=== PATIENT | female | born 1995 | race Caucasian/White ===

== ENCOUNTER 2018-02-18 14:29 | Observation (INO) | payer BC ==
[2018-02-18] MEDS ORDERED: SODIUM CHLORIDE 0.9% 1,000 ML IV STA (14:48)
--- NOTE | 2018-02-18 15:12 | ED ---
Abdominal Pain HPI - General Source: patient Mode of arrival: ambulatory Limitations: no limitations <Shanice Kim - Last Filed: 02/18/18 16:57> - General Source: RN notes reviewed, old records reviewed - History of Present Illness Complaint: abdominal pain Location: diffuse, periumbilical Radiation: none Migration to: no migration Severity: mild Severity scale (1-10): 3 Quality: cramping Consistency: constant Improves With: nothing Worsens With: nothing Associated Symptoms: denies other symptoms <Saleem Chappell - Last Filed: 02/18/18 18:54> - General Chief Complaint: Abdominal Pain Stated Complaint: abdominal pain-sent by [employer] Time Seen by Provider: 02/18/18 14:42 - History of Present Illness Initial Comments: 22-year-old female patient presents to the emergency department today for evaluation of right lower quadrant abdominal pain. Patient states she was seen and evaluated at [facility], was diagnosed with urinary tract infection but they wanted her to present to the ER for further evaluation. Patient states that the pain started last evening. Patient states are times and that the pain is dull however there are also times in the pain is sharp and stabbing and severe. Patient denies any nausea, vomiting, constipation, or diarrhea with this. Denies any hematuria, dysuria, urinary frequency, urinary urgency. States the pain does not radiate through to her back. Denies any history of abdominal surgeries. Denies any abnormal vaginal bleeding or discharge. Denies concern for STIs. Patient denies any recent rash, shortness breath, chest pain, numbness, tingling, dizziness, weakness, hematuria, dysuria, urinary urgency, urinary frequency, headache, visual changes, or any other complaints. (Shanice Kim) - Related Data Home Medications Medication Instructions Recorded Confirmed Citalopram Hydrobromide [CeleXA] 40 mg PO DAILY 02/18/18 02/18/18 Ibuprofen [Motrin Ib] 400 mg PO Q6H PRN 02/18/18 02/18/18 Iron 18 mg PO DAILY 02/18/18 02/18/18 Lessina-28 ( Control) 1 tab PO DAILY 02/18/18 02/18/18 Potassium 99 mg PO DAILY 02/18/18 02/18/18 Allergies Allergy/AdvReac Type Severity Reaction Status Date / Time latex Allergy Rash/Hives Verified 02/18/18 17:48 Review of Systems ROS Other: All systems not noted in ROS Statement are negative. <Shanice Kim - Last Filed: 02/18/18 16:57> ROS Other: All systems not noted in ROS Statement are negative. <Saleem Chappell - Last Filed: 02/18/18 18:54> ROS Statement: Those systems with pertinent positive or pertinent negative responses have been documented in the HPI. Past Medical History Past Medical History: No Reported History History of Any Multi-Drug Resistant Organisms: None Reported Past Surgical History: No Surgical Hx Reported Past Psychological History: ADD/ADHD, Anxiety Smoking Status: Current some day smoker Past Alcohol Use History: Occasional Past Drug Use History: None Reported <Shanice Kim - Last Filed: 02/18/18 16:57> General Exam Limitations: no limitations General appearance: alert, in no apparent distress, other (This is a well- developed, well-nourished adult female patient in no acute distress. Vital signs upon presentation are temperature 97.6F, pulse 78, respirations 20, blood pressure 118/74, pulse ox 100% on room air.) Eye exam: Present: normal appearance, PERRL, EOMI. Absent: scleral icterus, conjunctival injection, periorbital swelling ENT exam: Present: normal exam, normal oropharynx, mucous membranes moist Respiratory exam: Present: normal lung sounds bilaterally. Absent: respiratory distress, wheezes, rales, rhonchi, stridor Cardiovascular Exam: Present: regular rate, normal rhythm, normal heart sounds. Absent: systolic murmur, diastolic murmur, rubs, gallop, clicks GI/Abdominal exam: Present: soft, tenderness (Right lower quadrant tenderness), normal bowel sounds. Absent: distended, guarding, rebound, rigid Neurological exam: Present: alert, oriented X3, CN II-XII intact Psychiatric exam: Present: normal affect, normal mood Skin exam: Present: warm, dry, intact, normal color. Absent: rash <Shanice Kim - Last Filed: 02/18/18 16:57> General appearance: alert, in no apparent distress Head exam: Present: atraumatic, normocephalic, normal inspection Eye exam: Present: normal appearance, PERRL, EOMI. Absent: scleral icterus, conjunctival injection, periorbital swelling ENT exam: Present: normal exam, mucous membranes moist Neck exam: Present: normal inspection. Absent: tenderness, meningismus, lymphadenopathy Respiratory exam: Present: normal lung sounds bilaterally. Absent: respiratory distress, wheezes, rales, rhonchi, stridor Cardiovascular Exam: Present: regular rate, normal rhythm, normal heart sounds. Absent: systolic murmur, diastolic murmur, rubs, gallop, clicks GI/Abdominal exam: Present: soft, normal bowel sounds. Absent: distended, tenderness, guarding, rebound, rigid Extremities exam: Present: normal inspection, full ROM, normal capillary refill. Absent: tenderness, pedal edema, joint swelling, calf tenderness Back exam: Present: normal inspection Neurological exam: Present: alert, oriented X3, CN II-XII intact Psychiatric exam: Present: normal affect, normal mood Skin exam: Present: warm, dry, intact, normal color. Absent: rash <Saleem Chappell - Last Filed: 02/18/18 18:54> Course <Shanice Kim - Last Filed: 02/18/18 16:57> <Saleem Chappell - Last Filed: 02/18/18 18:54> Vital Signs 02/18/18 02/18/18 14:32 17:33 Temperature 97.6 F 97.7 F Pulse Rate 78 91 Respiratory 20 16 Rate Blood Pressure 118/74 111/59 O2 Sat by Pulse 100 100 Oximetry - Reevaluation(s) Reevaluation #1: 02/18/18 18:[address] Hudson he is aware of patient's condition and findings, patient will reveal. Patient, he will also admit patient for surgical intervention ( Saleem Chappell) Medical Decision Making - Lab Data Result diagrams: 02/18/18 15:05 02/18/18 15:05 <Shanice Kim - Last Filed: 02/18/18 16:57> - Lab Data Result diagrams: 02/18/18 15:05 02/18/18 15:05 <Saleem Chappell - Last Filed: 02/18/18 18:54> - Medical Decision Making 22-year-old male patient presents the emergency department today for evaluation of right lower quadrant abdominal pain. Physical examination did reveal some mild tenderness of the right lower quadrant. Labs reviewed and did reveal elevated white blood cell count at 12.6. Urinalysis did show14 white blood cells, many bacteria, 9 squamous epithelial cells. I did discuss findings and results with the patient. There is some concern for appendicitis we will perform CT abdomen and pelvis with contrast. My attending Dr. Chappell, will take over care and follow patient until disposition. (Shanice Kim) 22 female the ER for positive abdominal pain positive CT for appendicitis. Patient be taken for surgery tonight. (Saleem Chappell) - Lab Data Lab Results 02/18/18 02/18/18 02/18/18 Range/Units 15:05 15:05 15:05 WBC 12.1 H (4.0-11.0) k/uL RBC 4.53 (3.80-5.40) m/uL Hgb 12.9 (11.4-16.0) gm/dL Hct 38.2 (34.0-46.0) % MCV 84.3 (80.0-100.0) fL MCH 28.6 (25.0-35.0) pg MCHC 33.9 (31.0-37.0) g/dL RDW 12.5 (11.5-15.5) % Plt Count 246 (150-450) k/uL Neutrophils % 69 % Lymphocytes % 25 % Monocytes % 3 % Eosinophils % 2 % Basophils % 0 % Neutrophils # 8.4 H (1.3-7.7) k/uL Lymphocytes # 3.0 (1.0-4.8) k/uL Monocytes # 0.4 (0-1.0) k/uL Eosinophils # 0.2 (0-0.7) k/uL Basophils # 0.0 (0-0.2) k/uL Sodium 142 (137-145) mmol/L Potassium 3.8 (3.5-5.1) mmol/L Chloride 105 (98-107) mmol/L Carbon Dioxide 27 (22-30) mmol/L Anion Gap 10 mmol/L BUN 18 H (7-17) mg/dL Creatinine 0.87 (0.52-1.04) mg/dL Est GFR (CKD-EPI)AfAm >90 (>60 ml/min/1.73 sqM) Est GFR (CKD-EPI)NonAf >90 (>60 ml/min/1.73 sqM) Glucose 84 (74-99) mg/dL Calcium 9.6 (8.4-10.2) mg/dL Total Bilirubin 0.2 (0.2-1.3) mg/dL AST 22 (14-36) U/L ALT 36 (9-52) U/L Alkaline Phosphatase 77 (38-126) U/L Total Protein 7.4 (6.3-8.2) g/dL Albumin 4.3 (3.5-5.0) g/dL Amylase 55 (30-110) U/L Lipase 91 (23-300) U/L Urine Color Yellow Urine Appearance Cloudy H (Clear) Urine pH 6.0 (5.0-8.0) Ur Specific [place] 1.029 (1.001-1.035) Urine Protein 1+ H (Negative) Urine Glucose (UA) Negative (Negative) Urine Ketones Trace H (Negative) Urine Blood Negative (Negative) Urine Nitrite Negative (Negative) Urine Bilirubin Negative (Negative) Urine Urobilinogen <2.0 (<2.0) mg/dL Ur Leukocyte Esterase Moderate H (Negative) Urine RBC 11 H (0-5) /hpf Urine WBC 14 H (0-5) /hpf Ur Squamous Epith Cells 9 H (0-4) /hpf Urine Bacteria Many H (None) /hpf Urine Mucus Many H (None) /hpf Urine HCG, Qual (Not Detectd) 02/18/18 Range/Units 15:05 WBC (4.0-11.0) k/uL RBC (3.80-5.40) m/uL Hgb (11.4-16.0) gm/dL Hct (34.0-46.0) % MCV (80.0-100.0) fL MCH (25.0-35.0) pg MCHC (31.0-37.0) g/dL RDW (11.5-15.5) % Plt Count (150-450) k/uL Neutrophils % % Lymphocytes % % Monocytes % % Eosinophils % % Basophils % % Neutrophils # (1.3-7.7) k/uL Lymphocytes # (1.0-4.8) k/uL Monocytes # (0-1.0) k/uL Eosinophils # (0-0.7) k/uL Basophils # (0-0.2) k/uL Sodium (137-145) mmol/L Potassium (3.5-5.1) mmol/L Chloride (98-107) mmol/L Carbon Dioxide (22-30) mmol/L Anion Gap mmol/L BUN (7-17) mg/dL Creatinine (0.52-1.04) mg/dL Est GFR (CKD-EPI)AfAm (>60 ml/min/1.73 sqM) Est GFR (CKD-EPI)NonAf (>60 ml/min/1.73 sqM) Glucose (74-99) mg/dL Calcium (8.4-10.2) mg/dL Total Bilirubin (0.2-1.3) mg/dL AST (14-36) U/L ALT (9-52) U/L Alkaline Phosphatase (38-126) U/L Total Protein (6.3-8.2) g/dL Albumin (3.5-5.0) g/dL Amylase (30-110) U/L Lipase (23-300) U/L Urine Color Urine Appearance (Clear) Urine pH (5.0-8.0) Ur Specific [place] (1.001-1.035) Urine Protein (Negative) Urine Glucose (UA) (Negative) Urine Ketones (Negative) Urine Blood (Negative) Urine Nitrite (Negative) Urine Bilirubin (Negative) Urine Urobilinogen (<2.0) mg/dL Ur Leukocyte Esterase (Negative) Urine RBC (0-5) /hpf Urine WBC (0-5) /hpf Ur Squamous Epith Cells (0-4) /hpf Urine Bacteria (None) /hpf Urine Mucus (None) /hpf Urine HCG, Qual Not Detected (Not Detectd) Disposition <Shanice Kim - Last Filed: 02/18/18 16:57> Is patient prescribed a controlled substance at d/c from ED?: No <Saleem Chappell - Last Filed: 02/18/18 18:54> Clinical Impression: Abdominal pain, Acute appendicitis Disposition: ADMITTED IP TO THIS HOSP Condition: Fair Referrals: Avni Alvarez DO [Primary Care Provider] - 1-2 days
[2018-02-18 15:29] LABS: Appearance,Urine Cloudy (Clear); Bacteria,Urine Many /hpf; Bilirubin,Urine Negative (Negative); Blood,Urine Negative (Negative); Color,Urine Yellow; Glucose,Urine (UA) Negative (Negative); Ketones,Urine Trace (Negative); Leukocyte Esterase,Urine Moderate (Negative); Mucus,Urine Many /hpf; Nitrite,Urine Negative (Negative); Protein,Urine 1+ (Negative); RBC,Urine 11 /hpf (0-5); Specific Gravity,Urine 1.029 (1.001-1.035); Squamous Epithelial Cell,Urine 9 /hpf (0-4); Urobilinogen,Urine <2.0 mg/dL (<2.0); WBC,Urine 14 /hpf (0-5)
[2018-02-18 15:33] LABS: Basophils % (A) 0 %; Eosinophils # (A) 0.2 k/uL (0-0.7); Eosinophils % (A) 2 %; HCT 38.2 % (34.0-46.0); HGB 12.9 gm/dL (11.4-16.0); Lymphocytes % (A) 25 %; MCH 28.6 pg (25.0-35.0); MCHC 33.9 g/dL (31.0-37.0); MCV 84.3 fL (80.0-100.0); Mean Platelet Volume 6.4; Monocytes # (A) 0.4 k/uL (0-1.0); Monocytes % (A) 3 %; Neutrophils # (A) 8.4 k/uL (1.3-7.7); Neutrophils % (A) 69 %; Platelet Count 246 k/uL (150-450); RBC 4.53 m/uL (3.80-5.40); RDW 12.5 % (11.5-15.5); WBC 12.1 k/uL (4.0-11.0)
[2018-02-18 15:34] LABS: ALT 36 U/L (9-52); AST 22 U/L (14-36); Albumin 4.3 g/dL (3.5-5.0); Alkaline Phosphatase 77 U/L (38-126); Amylase 55 U/L (30-110); Anion Gap 10 mmol/L; Blood Urea Nitrogen 18 mg/dL (7-17); Calcium 9.6 mg/dL (8.4-10.2); Carbon Dioxide 27 mmol/L (22-30); Chloride 105 mmol/L (98-107); Glucose 84 mg/dL (74-99); Lipase 91 U/L (23-300); Potassium 3.8 mmol/L (3.5-5.1); Sodium 142 mmol/L (137-145); Total Bilirubin 0.2 mg/dL (0.2-1.3); Total Protein 7.4 g/dL (6.3-8.2)
--- NOTE | 2018-02-18 15:44 | XR ---
EXAMINATION TYPE: XR KUB DATE OF EXAM: 02/18/2018 CLINICAL DATA: 22-year-old male with abdominal pain on the right, [facility] COMPARISON: None FINDINGS: Lung bases are clear. No evidence for free intraperitoneal air. No dilated small bowel or air-fluid levels. Small amount of scattered colonic air. Mild stool in the right-sided the abdomen. No suspicious calcifications seen. IMPRESSION: Only mild stool on the right. No evidence of bowel obstruction or free intraperitoneal air.
--- NOTE | 2018-02-18 17:23 | CT ---
EXAMINATION TYPE: CT abdomen pelvis w con DATE OF EXAM: 02/18/2018 COMPARISON: None HISTORY: LT groin pain radiating to abdomen CT DLP: 1226.9 mGycm CONTRAST: CT scan of the abdomen and pelvis is performed without Oral Contrast and with IV Contrast, patient in jected with 100 mL of Isovue 300. FINDINGS: LUNG BASES-: No visible nodule. No infiltrate. LIVER/GB: No calcified gallstones. No space occupying hepatic lesion. Biliary tree is of normal ca liber. PANCREAS: No inflammation. No distinct mass. SPLEEN: No splenic enlargement. No lesion seen. ADRENALS: No nodule. No thickening. KIDNEYS/BLADDER: No hydronephrosis. No nephrolithiasis. No distinct renal mass. Urinary bladder g rossly unremarkable. BOWEL: There is thickening at the base of the appendix measuring 9.6 mm with periappendiceal inflamma tory change. Mild uncomplicated acute appendicitis not excluded. Strict clinical correlation advised. The remainder of the appendix has a normal appearance. There is a small amount of free fluid within the pelvis and cul-de-sac. Mild small bowel ileus noted. Large bowel is of normal caliber. No evidenc e for abscess or free air. GENITAL ORGANS: No gross abnormality. LYMPH NODES: No greater than 1cm abdominal or pelvic lymph nodes are appreciated. AORTA: No significant abnormality. OSSEOUS STRUCTURES: No significant abnormality is seen. OTHER: No significant additional abnormality is seen. IMPRESSION: 1. There is thickening at the base of the appendix measuring 9.6 mm with periappendiceal inflammatory change. Mild uncomplicated acute appendicitis not excluded. Strict clinical correlation advised
[2018-02-18] MEDS ORDERED: HEPARIN SODIUM,PORCINE 5,000 UNIT/ML 1 ML VIAL SQ STA (18:43)
[2018-02-18] MEDS ORDERED: PIPERACILLIN-TAZOBACTAM 3.375 GM in SODIUM CHLORIDE 0.9% 100 ML IVPB STA (18:55)
[2018-02-18] MEDS ORDERED: MORPHINE SULFATE 4 MG/ML SYRINGE IVP PRN (19:08)
[2018-02-18] MEDS ORDERED: MORPHINE SULFATE 4 MG/ML SYRINGE IVP STA (19:08)
[2018-02-18] MEDS ORDERED: BUPIVACAIN-EPI 0.25%-1:200,000 30 ML VIAL SQ ONE ×2 (20:15)
--- NOTE | 2018-02-18 20:27 | P.GSHP ---
History of Present Illness H&P Date: 02/18/18 Chief Complaint: Acute appendicitis 22-year-old female presents to the ER from urgent care with pain. Pain periumbilical moved down to the right lower quadrant yesterday afternoon. The pain began yesterday. No history of similar events. Some nausea but no vomiting. Currently hungry. No change in bowel habits. White blood cell count slightly elevated. CAT scan shows inflammatory changes around the base of the appendix which was slightly thickened. No menstrual irregularities. HCG negative. - Review of Systems Comment: The patient denies any acute changes in vision or hearing, no dysphagia or odynophagia, no chest pain or shortness of breath, no dysuria or hematuria, no headache, no runny nose, no rectal bleeding or melena, no unexplained weight loss Past Medical History Past Medical History: No Reported History History of Any Multi-Drug Resistant Organisms: None Reported Past Surgical History: No Surgical Hx Reported Past Psychological History: ADD/ADHD, Anxiety Smoking Status: Current some day smoker Past Alcohol Use History: Occasional Past Drug Use History: None Reported Medications and Allergies Home Medications Medication Instructions Recorded Confirmed Type Citalopram Hydrobromide [CeleXA] 40 mg PO DAILY 02/18/18 02/18/18 History Ibuprofen [Motrin Ib] 400 mg PO Q6H PRN 02/18/18 02/18/18 History Iron 18 mg PO DAILY 02/18/18 02/18/18 History Lessina-28 ( Control) 1 tab PO DAILY 02/18/18 02/18/18 History Potassium 99 mg PO DAILY 02/18/18 02/18/18 History Allergies Allergy/AdvReac Type Severity Reaction Status Date / Time latex Allergy Rash/Hives Verified 02/18/18 17:48 Surgical - Exam Vital Signs Temp Pulse Resp BP Pulse Ox 97.6 F 78 20 118/74 100 02/18/18 14:32 02/18/18 14:32 02/18/18 14:32 02/18/18 14:32 02/18/18 14:32 Physical exam: General: Well-developed, well-nourished HEENT: Normocephalic, sclerae nonicteric Abdomen: Moderate right lower quadrant tenderness, nondistended Extremities: No edema Neuro: Alert and oriented Results - Labs 02/18/18 15:05 02/18/18 15:05 Abnormal Lab Results - Last 24 Hours (Table) 02/18/18 02/18/18 02/18/18 Range/Units 15:05 15:05 15:05 WBC 12.1 H (4.0-11.0) k/uL Neutrophils # 8.4 H (1.3-7.7) k/uL BUN 18 H (7-17) mg/dL Urine Appearance Cloudy H (Clear) Urine Protein 1+ H (Negative) Urine Ketones Trace H (Negative) Ur Leukocyte Esterase Moderate H (Negative) Urine RBC 11 H (0-5) /hpf Urine WBC 14 H (0-5) /hpf Ur Squamous Epith Cells 9 H (0-4) /hpf Urine Bacteria Many H (None) /hpf Urine Mucus Many H (None) /hpf Diabetes panel 02/18/18 Range/Units 15:05 Sodium 142 (137-145) mmol/L Potassium 3.8 (3.5-5.1) mmol/L Chloride 105 (98-107) mmol/L Carbon Dioxide 27 (22-30) mmol/L BUN 18 H (7-17) mg/dL Creatinine 0.87 (0.52-1.04) mg/dL Glucose 84 (74-99) mg/dL Calcium 9.6 (8.4-10.2) mg/dL AST 22 (14-36) U/L ALT 36 (9-52) U/L Alkaline Phosphatase 77 (38-126) U/L Total Protein 7.4 (6.3-8.2) g/dL Albumin 4.3 (3.5-5.0) g/dL Calcium panel 02/18/18 Range/Units 15:05 Calcium 9.6 (8.4-10.2) mg/dL Albumin 4.3 (3.5-5.0) g/dL Pituitary panel 02/18/18 Range/Units 15:05 Sodium 142 (137-145) mmol/L Potassium 3.8 (3.5-5.1) mmol/L Chloride 105 (98-107) mmol/L Carbon Dioxide 27 (22-30) mmol/L BUN 18 H (7-17) mg/dL Creatinine 0.87 (0.52-1.04) mg/dL Glucose 84 (74-99) mg/dL Calcium 9.6 (8.4-10.2) mg/dL Adrenal panel 02/18/18 Range/Units 15:05 Sodium 142 (137-145) mmol/L Potassium 3.8 (3.5-5.1) mmol/L Chloride 105 (98-107) mmol/L Carbon Dioxide 27 (22-30) mmol/L BUN 18 H (7-17) mg/dL Creatinine 0.87 (0.52-1.04) mg/dL Glucose 84 (74-99) mg/dL Calcium 9.6 (8.4-10.2) mg/dL Total Bilirubin 0.2 (0.2-1.3) mg/dL AST 22 (14-36) U/L ALT 36 (9-52) U/L Alkaline Phosphatase 77 (38-126) U/L Total Protein 7.4 (6.3-8.2) g/dL Albumin 4.3 (3.5-5.0) g/dL Assessment and Plan (1) Acute appendicitis Narrative/Plan: Clinical scenario discussed with the patient and her parents. We'll proceed with laparoscopic appendectomy at this time. Risks of bleeding, infection, conversion to an open procedure, bladder and bowel injury, abscess, hernia, postoperative pain, potential for finding other etiologies for her pain were reviewed. They understand and wish to proceed. Current Visit: Yes Status: Acute Code(s): K35.80 - UNSPECIFIED ACUTE APPENDICITIS SNOMED Code(s): 41299719
[2018-02-18] MEDS ORDERED: HEPARIN SODIUM,PORCINE 5,000 UNIT/ML 1 ML VIAL ONE (20:30)
[2018-02-18] MEDS ORDERED: ROCURONIUM BROMIDE 10 MG/ML 10 ML VIAL IV ONE (20:30)
[2018-02-18] MEDS ORDERED: SUCCINYLCHOLINE CHLORIDE 100 MG/5 ML SYR IV ONE (20:30)
[2018-02-18] MEDS ORDERED: ONDANSETRON 4 MG/2 ML VIAL ONE (20:30)
[2018-02-18] MEDS ORDERED: HYDROmorphone (PF) 1 MG/ML ONE (20:30)
[2018-02-18] MEDS ORDERED: MIDAZOLAM 2 MG/2 ML VIAL ONE (20:30)
[2018-02-18] MEDS ORDERED: fentaNYL (PF) 50 MCG/ML 2 ML AMP ONE (20:30)
[2018-02-18] MEDS ORDERED: PROPOFOL 10 MG/ML 20 ML VIAL IV ONE (20:30)
[2018-02-18] MEDS ORDERED: LIDOCAINE 1% INJ 10MG/ML (20 ML MDV) ONE (20:30)
[2018-02-18] MEDS ORDERED: KETOROLAC 30 MG/ML 1 ML VIAL ONE (20:30)
[2018-02-18] MEDS ORDERED: IV FLUID CONTINUATION 900 ML IV ONE (20:54)
[2018-02-18] MEDS ORDERED: HYDROmorphone 0.5 MG/0.5 ML SYRINGE IVP PRN (21:26)
[2018-02-18] MEDS ORDERED: NALOXONE 0.4 MG/ML 1 ML VIAL IV PRN (21:26)
[2018-02-18] MEDS ORDERED: HYDROcodone/APAP 5-325MG 1 EACH TAB PO PRN (21:26)
[2018-02-18] MEDS ORDERED: ONDANSETRON 4 MG/2 ML VIAL IVP PRN (21:26)
--- NOTE | 2018-02-18 21:28 | P.OP ---
Date of Procedure: 02/18/18 Procedure(s) Performed: PREOPERATIVE DIAGNOSIS: Acute appendicitis POSTOPERATIVE DIAGNOSIS: Same PROCEDURE: Laparoscopic appendectomy SURGEON: Tristan EBL: Total ANESTHESIA: General COMPLICATIONS: None OPERATIVE PROCEDURE: The patient was brought and placed on the operating table in the supine position. The patient was placed under general anesthesia. The abdomen was prepped and draped in the usual sterile fashion. A small vertical infraumbilical incision was made. The fascia was retracted anteriorly with Bharti forceps. The Veress needle was advanced into the peritoneal cavity. The saline drop test was normal. Insufflation took place to 15 mmHg. A 5 mm trocar was then placed. An additional 5 mm suprapubic trocar was placed under direct visualization as well as a 12 mm left lower quadrant trocar under direct visualization. The appendix was inspected. It was acutely inflamed. The mesoappendix was dissected. The base of the appendix was divided using a linear 45 mm intestinal stapler. The mesentery itself was divided using both the hays load stapler and the 12 mm clipper. The area was then irrigated. No further purulence or bleeding was seen. The appendix was brought out of the peritoneal cavity through the left lower quadrant trocar site using an Endo Catch bag. The fascia at the 12 mm site was closed using a Reid-Misael 0 Vicryl stitch. The skin at all 3 sites was closed using 4-0 Monocryl sutures. Skin glue and sterile dressings then applied. DISPOSITION: Stable to recovery room
[2018-02-18] MEDS ORDERED: MEPERIDINE 50 MG/ML SYRINGE IVP ONE (21:31)
[2018-02-19] MEDS: KETOROLAC 30 MG/ML 1 ML VIAL IVP SCH ×5 (00:16→21:40)
[2018-02-19] MEDS: HEPARIN SODIUM,PORCINE 5,000 UNIT/ML 1 ML VIAL SQ SCH ×3 (00:17→17:10)
[2018-02-19] MEDS: PIPERACILLIN-TAZOBACTAM 3.375 GM in SODIUM CHLORIDE 0.9% 100 ML IVPB SCH ×3 (01:22→18:13)
--- NOTE | 2018-02-19 13:34 | P.PN ---
Subjective Progress Note Date: 02/19/18 Principal diagnosis: Acute appendicitis Patient complaining of some chest and gassy pain today. Right lower quadrant pain improved. She is afebrile. She is ambulate in. She was having urinary retention issues however. Objective - Vital Signs Vital signs: Vital Signs Temp 97.6 F 02/19/18 00:09 Pulse 76 02/19/18 08:56 Resp 16 02/19/18 08:56 BP 98/64 02/19/18 08:56 Pulse Ox 97 02/19/18 08:56 Intake & Output 02/18/18 02/19/18 02/19/18 18:59 06:59 18:59 Intake Total 1910 Output Total 305 Balance 1605 Weight 89.811 kg Intake: IV 200 Intake, IV Titration 460 Amount Piperacillin-Tazobactam 3 100 .375 gm In Sodium Chloride 0.9% 100 ml @ 25 mls/hr IVPB ONCE STA Rx# :[id number] Piperacillin-Tazobactam 3 200 .375 gm In Sodium Chloride 0.9% 100 ml @ 25 mls/hr IVPB Q8HR ELLIOT Rx# :[id number] Sodium Chloride 0.9% 1, 160 000 ml @ 20 mls/hr IV . Q24H ELLIOT Rx#:[id number] Oral 1250 Output: Urine 300 Straight 300 Estimated Blood Loss 5 Other: Voiding Method Toilet # Voids 1 - Exam Abdomen: Soft, nondistended, incisions clean and dry, mild tenderness - Labs CBC & Chem 7: 02/18/18 15:05 02/18/18 15:05 Labs: Abnormal Lab Results - Last 24 Hours (Table) 02/18/18 02/18/18 02/18/18 Range/Units 15:05 15:05 15:05 WBC 12.1 H (4.0-11.0) k/uL Neutrophils # 8.4 H (1.3-7.7) k/uL BUN 18 H (7-17) mg/dL Urine Appearance Cloudy H (Clear) Urine Protein 1+ H (Negative) Urine Ketones Trace H (Negative) Ur Leukocyte Esterase Moderate H (Negative) Urine RBC 11 H (0-5) /hpf Urine WBC 14 H (0-5) /hpf Ur Squamous Epith Cells 9 H (0-4) /hpf Urine Bacteria Many H (None) /hpf Urine Mucus Many H (None) /hpf Microbiology - Last 24 Hours (Table) 02/18/18 16:00 Urine Culture - Preliminary Urine,Voided Assessment and Plan (1) Acute appendicitis Narrative/Plan: Ambulate. Increase diet. Possible discharge later today. Current Visit: Yes Status: Acute Code(s): K35.80 - UNSPECIFIED ACUTE APPENDICITIS SNOMED Code(s): 74770297
[2018-02-19] MEDS ORDERED: METOCLOPRAMIDE 5 MG/ML 2 ML VIAL IVP PRN (13:46)
[2018-02-19] MEDS: SODIUM CHLORIDE 0.9% 1,000 ML IV SCH (18:15)
[2018-02-19] MEDS: traMADol 50 MG TAB PO PRN (21:41)
[2018-02-20] MEDS: PIPERACILLIN-TAZOBACTAM 3.375 GM in SODIUM CHLORIDE 0.9% 100 ML IVPB SCH ×2 (01:09→07:57)
[2018-02-20] MEDS: HEPARIN SODIUM,PORCINE 5,000 UNIT/ML 1 ML VIAL SQ SCH ×2 (01:09→07:57)
[2018-02-20] MEDS: KETOROLAC 30 MG/ML 1 ML VIAL IVP SCH ×2 (04:01→09:56)
[2018-02-20] MEDS: SODIUM CHLORIDE 0.9% 1,000 ML IV SCH (07:35)
[2018-02-20 07:42] VITALS: BP 93/61; PULSE 85; RESP 16; TEMP 98
[2018-02-20] MEDS: traMADol 50 MG TAB PO PRN ×2 (07:58→13:30)
--- NOTE | 2018-02-20 12:29 | P.DS ---
Providers Date of admission: 02/18/18 18:54 Expected date of discharge: 02/20/18 Attending physician: Bishnu Hudson Primary care physician: Avni Alvarez - Discharge Diagnosis(es) (1) Acute appendicitis Patient admitted 2 days ago for acute appendicitis. Patient underwent laparoscopic appendectomy at that time. Yesterday the patient was having some perioperative discomfort and some urinary retention issues. For that reason she was kept overnight. Today she is doing much better. She is tolerating her diet. Pain is well-controlled. She would like to go home today. We'll discharge prescription for Ultram. No antibiotics necessary. Follow-up in the office to 3 weeks. Current Visit: Yes Status: Acute Patient Condition at Discharge: Fair Plan - Discharge Summary Discharge Rx Participant: Yes New Discharge Prescriptions: No Action Potassium 99 mg PO DAILY Lessina-28 ( Control) 1 tab PO DAILY Iron 18 mg PO DAILY Citalopram Hydrobromide [CeleXA] 40 mg PO DAILY Ibuprofen [Motrin Ib] 400 mg PO Q6H PRN PRN Reason: Pain Discharge Medication List Citalopram Hydrobromide [CeleXA] 40 mg PO DAILY 02/18/18 [History] Ibuprofen [Motrin Ib] 400 mg PO Q6H PRN 02/18/18 [History] Iron 18 mg PO DAILY 02/18/18 [History] Lessina-28 ( Control) 1 tab PO DAILY 02/18/18 [History] Potassium 99 mg PO DAILY 02/18/18 [History] Follow up Appointment(s)/Referral(s): Bishnu Hudson MD [Medical Doctor] - 2 Weeks Avni Alvarez DO [Primary Care Provider] - 1-2 days
== END 2018-02-20 14:03 | disposition home or self-care (01) ==
LOC: EC 14:29 → 4SSUR 18:54
PROVIDERS: ADMIT Surgery; ATTEND Surgery
DX: K35.80 Unspecified acute appendicitis (principal); R33.9 Retention of urine, unspecified; F17.200 Nicotine dependence, unspecified, uncomplicated; F41.9 Anxiety disorder, unspecified; F90.9 Attention-deficit hyperactivity disorder, unspecified type; N39.0 Urinary tract infection, site not specified; Z79.899 Other long term (current) drug therapy
CPT/HCPCS: 44970; 96361; 96374; 99285; 36415; 88304; 80053; 82150; 83690; 85025; 81001; 81025; 87086; 87077; 87186; 74018; 74177; G0378 ×3; J2543 ×3; J2250; J2270 ×2; J1644 ×3; J2765; J2175; J2405 ×2; J2001; J3010; J1885 ×3; J1170 ×2; J0330; J2704; Q9967

== ENCOUNTER → 2018-10-31 | Outpatient (CLI) | payer BC ==
--- NOTE | 2018-10-31 08:01 | USB ---
Reason for exam: clinical finding. History: Taking hormonal contraceptives beginning at age 19. Indicated problem(s): nipple abnormality in the left breast. Physical Findings: Nurse did not find any significant physical abnormalities on exam. US Breast BILAT Right complete breast ultrasound includes all four quadrants, the retroareolar region and axilla. Finding demonstrates no cystic or solid lesion seen. Left complete breast ultrasound includes all four quadrants, the retroareolar region and axilla. Finding demonstrates no cystic or solid lesion seen. No suspicious sonographic finding. These results were verbally communicated with the patient and result sheet given to the patient on 10/31/18. ASSESSMENT: Negative, BI-RAD 1 RECOMMENDATION: Routine screening mammogram of both breasts at age 42. Manage patient on a clinical basis. If pain persists, breast surgical consultation could be considered.
== END ==
LOC: RADUSWWP 07:01
PROVIDERS: ATTEND Obstetrics & Gynecology Obstetrics
DX: N64.4 Mastodynia (principal)